=== PATIENT | male | born 1970 | race Caucasian/White ===

== ENCOUNTER 2017-10-07 09:37 | Emergency (ER) | payer MEDICAID ==
[~2017-10-07] VITALS: Ht 180.3 cm; Wt 104.5 kg
[2017-10-07 09:43] VITALS: BP 149/82
[2017-10-07] MEDS ORDERED: METR500T PO (10:25)
[2017-10-07] MEDS ORDERED: CLIN150C2 PO (10:26)
== END 2017-10-07 10:50 | disposition home or self-care (01) ==
LOC: ER 09:38
DX: L02.416 Cutaneous abscess of left lower limb (principal); G89.29 Other chronic pain; F12.10 Cannabis abuse, uncomplicated; Z98.890 Other specified postprocedural states; Z79.899 Other long term (current) drug therapy
CPT/HCPCS: 99283

== ENCOUNTER 2018-02-24 16:24 | Inpatient (IN) | payer MEDICAID ==
[~2018-02-24] VITALS: Ht 175.3 cm; Wt 105.0 kg
[2018-02-24] MEDS ORDERED: normal saline 1000ML IV soln IV ONE (17:25)
[2018-02-24 17:49] LABS: BASOPHILS # (AUTO) 0.1 X10'3 (0-0.2); BASOPHILS % (AUTO) 0.8 % (0-1); EOSINOPHILS # (AUTO) 0.2 X10'3 (0-0.9); EOSINOPHILS % (AUTO) 1.7 % (0-6); HEMATOCRIT 36.5 % (42.0-52.0); HEMOGLOBIN 12.9 g/dl (14.0-17.9); LYMPHOCYTES # (AUTO) 2.1 X10'3 (1.1-4.8); LYMPHOCYTES % (AUTO) 19.1 % (21-51); MEAN CORPUSCULAR HEMOGLOBIN 32.3 PG (27.0-31.0); MEAN CORPUSCULAR HGB CONC 35.4 % (33.0-36.5); MEAN CORPUSCULAR VOLUME 91.2 FL (78-98); MEAN PLATELET VOLUME 9.4 FL (7.4-10.4); MONOCYTES % (AUTO) 9.3 % (2-12); NEUTROPHILS # (AUTO) 7.7 X10'3 (1.8-7.7); NEUTROPHILS % (AUTO) 69.1 % (42-75); PLATELET COUNT 258 X10'3 (140-440); WHITE BLOOD COUNT 11.2 X10'3 (4.5-11.0)
[2018-02-24 17:58] LABS: PROTHROMBIN TIME 10.4 SECONDS (9.0-12.0)
[2018-02-24 18:02] LABS: CLARITY,URINE CLEAR (Clear); COLOR,URINE YELLOW (Yellow); GLUCOSE, URINE NEGATIVE (Neg); KETONES,URINE NEGATIVE (Neg); LEUKOCYTE ESTERASE ,URINE NEGATIVE (Neg); NITRITES, URINE NEGATIVE (Neg); OCCULT BLOOD,URINE NEGATIVE (Neg); PROTEIN,URINE NEGATIVE (Neg); UROBILINOGEN,URINE 0.2 E.U/dL (0.2-1.0)
[2018-02-24 18:04] LABS: UA COLLECTION TYPE CLN CATCH MIDSTREAM
[2018-02-24 18:06] LABS: ALANINE AMINOTRANSFERASE 10 U/L (12-78); ALBUMIN 3.9 G/DL (3.4-5.0); ALKALINE PHOSPHATASE 134 IU/L (46-116); ANION GAP 10 (8-16); ASPARTATE AMINO TRANSFERASE 16 U/L (10-37); BILIRUBIN,TOTAL 0.6 MG/DL (0.1-1.0); BLOOD UREA NITROGEN 8 MG/DL (7-18); BUN/CREATININE RATIO 7.2 (5.4-32.0); CALCIUM 8.7 MG/DL (8.5-10.1); CHLORIDE 99 MMOL/L (99-107); CREATININE 1.11 MG/DL (0.60-1.10); GLUCOSE 156 MG/DL (70-104); POTASSIUM 3.2 MMOL/L (3.5-5.1); SODIUM 133 MMOL/L (135-145); TOTAL CARBON DIOXIDE 23.7 MMOL/L (24-32); TOTAL PROTEIN 7.7 G/DL (6.4-8.2); eGFR 71 ML/MIN
[2018-02-24] MEDS ORDERED: iohexol 350MG/ML 100ml bottle IV ONE (18:13)
[2018-02-24] MEDS ORDERED: vancomycin/NS 1 GM ADD-VANTAGE 250 ML IV ONE (18:20)
[2018-02-24] MEDS ORDERED: FLUO20CA22 PO (18:35)
[2018-02-24] MEDS ORDERED: LORA1TAB PO (18:36)
[2018-02-24] MEDS ORDERED: CLON0.2T PO (18:36)
[2018-02-24] MEDS ORDERED: CEPH500C2 PO (18:37)
[2018-02-24] MEDS ORDERED: SULF1TAB49 PO (18:39)
[2018-02-24] MEDS ORDERED: GABA-532 PO (18:42)
[2018-02-24] MEDS ORDERED: morphine 4 MG/ML inj SYRINge IV ONE (19:10)
[2018-02-24] MEDS ORDERED: proCHLORperazine 10 MG/2 ml inj IV ONE (19:10)
[2018-02-24] MEDS ORDERED: mag hydrox/Alum hydrox/simeth 30ml oral suspension PO PRN (20:10)
[2018-02-24] MEDS ORDERED: magnesium hydroxide 30ml (MOM) UD suspension PO PRN (20:10)
[2018-02-24] MEDS ORDERED: HYDROcodone/acetaminophen 5mg/325mg tablet PO PRN (20:10)
[2018-02-24] MEDS ORDERED: potassium Cl 20 mEq SR tablet PO PRN ×2 (20:10)
[2018-02-24] MEDS ORDERED: magnesium 4gm in 100ml NS 100 ML IV PRN (20:10)
[2018-02-24] MEDS ORDERED: magnesium 1gm/100ml D5W IVPB 100 ML IV PRN (20:10)
[2018-02-24] MEDS ORDERED: ondansetron/PF 4mg/2ml inj IV PRN (20:10)
[2018-02-24] MEDS ORDERED: potassium Cl 40MEQ/NS 500ml 500 ML IV PRN ×2 (20:10)
[2018-02-24] MEDS ORDERED: morphine 4 MG/ML inj SYRINge IV PRN ×2 (20:10)
[2018-02-24] MEDS ORDERED: acetaminophen 325mg tablet PO PRN (20:10)
[2018-02-24] MEDS: normal saline 1000ml 1,000 ML IV SCH (20:28)
[2018-02-24] MEDS: levoFLOXACIN 750MG TABLET PO SCH (20:30)
[2018-02-24 21:00] VITALS: BP 132/56
[2018-02-24] MEDS ORDERED: temazepam 15mg capsule PO PRN (21:00)
[2018-02-24] MEDS ORDERED: LORA2TAB PO (22:13)
[2018-02-25] MEDS: normal saline 1000ml 1,000 ML IV SCH ×2 (03:55→17:02)
[2018-02-25] MEDS: dronabinol 2.5mg capsule PO PRN ×3 (04:04→19:16)
[2018-02-25 06:00] VITALS: BP 113/49
[2018-02-25 06:13] LABS: BASOPHILS % (AUTO) 0.4 % (0-1); EOSINOPHILS # (AUTO) 0.2 X10'3 (0-0.9); EOSINOPHILS % (AUTO) 2.3 % (0-6); HEMATOCRIT 37.2 % (42.0-52.0); HEMOGLOBIN 12.7 g/dl (14.0-17.9); LYMPHOCYTES # (AUTO) 1.7 X10'3 (1.1-4.8); LYMPHOCYTES % (AUTO) 18.5 % (21-51); MEAN CORPUSCULAR HEMOGLOBIN 31.5 PG (27.0-31.0); MEAN CORPUSCULAR HGB CONC 34.2 % (33.0-36.5); MEAN CORPUSCULAR VOLUME 92.3 FL (78-98); MEAN PLATELET VOLUME 9.7 FL (7.4-10.4); NEUTROPHILS # (AUTO) 6.4 X10'3 (1.8-7.7); NEUTROPHILS % (AUTO) 67.8 % (42-75); PLATELET COUNT 248 X10'3 (140-440); RED BLOOD COUNT 4.03 X10'6 (4.70-6.10); RED CELL DISTRIBUTION WIDTH 12.8 % (11.5-14.5); WHITE BLOOD COUNT 9.3 X10'3 (4.5-11.0)
[2018-02-25 06:43] LABS: ALANINE AMINOTRANSFERASE 14 U/L (12-78); ALBUMIN 3.6 G/DL (3.4-5.0); ALKALINE PHOSPHATASE 125 IU/L (46-116); ANION GAP 8 (8-16); ASPARTATE AMINO TRANSFERASE 20 U/L (10-37); BILIRUBIN,TOTAL 0.6 MG/DL (0.1-1.0); BLOOD UREA NITROGEN 7 MG/DL (7-18); BUN/CREATININE RATIO 7.2 (5.4-32.0); CALCIUM 8.4 MG/DL (8.5-10.1); CHLORIDE 104 MMOL/L (99-107); CREATININE 0.97 MG/DL (0.60-1.10); GLUCOSE 106 MG/DL (70-104); POTASSIUM 3.8 MMOL/L (3.5-5.1); SODIUM 138 MMOL/L (135-145); TOTAL CARBON DIOXIDE 25.8 MMOL/L (24-32); TOTAL PROTEIN 7.3 G/DL (6.4-8.2); eGFR 83 ML/MIN
[2018-02-25] MEDS: enoxaparin 40mg/0.4ml syringe SQ SCH (07:16)
[2018-02-25] MEDS: K and/or MAG REPLACEMENT MC SCH (08:00)
[2018-02-25] MEDS ORDERED: ALBU18HF2 IN (08:14)
[2018-02-25 10:00] VITALS: BP 115/54
[2018-02-25] MEDS: levoFLOXACIN 750MG TABLET PO SCH (10:54)
[2018-02-25] MEDS ORDERED: albuterol 2.5 MG/3 ML nebule NEB PRN (13:10)
[2018-02-25] MEDS: gabapentin 300mg capsule PO SCH ×2 (16:02→23:15)
[2018-02-25] MEDS ORDERED: FLUO-1 PO (16:43)
[2018-02-25] MEDS: cloNIDine 0.1 mg tablet PO SCH (17:02)
[2018-02-25 18:00] VITALS: BP 134/67
[2018-02-25] MEDS: HYDROcodone/acetaminophen 10/325mg tab PO PRN (19:17)
[2018-02-25] MEDS ORDERED: LORazepam 1 MG tablet PO SCH (21:00)
[2018-02-25 22:00] VITALS: BP 118/49
[2018-02-26 06:00] VITALS: BP 118/57
[2018-02-26 06:05] LABS: BASOPHILS % (AUTO) 0.6 % (0-1); EOSINOPHILS # (AUTO) 0.2 X10'3 (0-0.9); HEMATOCRIT 36.2 % (42.0-52.0); HEMOGLOBIN 12.5 g/dl (14.0-17.9); LYMPHOCYTES # (AUTO) 2.3 X10'3 (1.1-4.8); LYMPHOCYTES % (AUTO) 28.8 % (21-51); MEAN CORPUSCULAR HEMOGLOBIN 31.6 PG (27.0-31.0); MEAN CORPUSCULAR HGB CONC 34.4 % (33.0-36.5); MEAN CORPUSCULAR VOLUME 91.7 FL (78-98); MEAN PLATELET VOLUME 9.8 FL (7.4-10.4); MONOCYTES # (AUTO) 0.8 X10'3 (0-0.9); MONOCYTES % (AUTO) 9.7 % (2-12); NEUTROPHILS # (AUTO) 4.5 X10'3 (1.8-7.7); NEUTROPHILS % (AUTO) 57.9 % (42-75); PLATELET COUNT 237 X10'3 (140-440); RED BLOOD COUNT 3.95 X10'6 (4.70-6.10); RED CELL DISTRIBUTION WIDTH 13.1 % (11.5-14.5); WHITE BLOOD COUNT 7.8 X10'3 (4.5-11.0)
[2018-02-26 06:25] LABS: ALANINE AMINOTRANSFERASE 10 U/L (12-78); ALBUMIN 3.3 G/DL (3.4-5.0); ALBUMIN/GLOBULIN RATIO 0.9 (1.1-1.5); ALKALINE PHOSPHATASE 127 IU/L (46-116); ANION GAP 9 (8-16); ASPARTATE AMINO TRANSFERASE 17 U/L (10-37); BILIRUBIN,TOTAL 0.5 MG/DL (0.1-1.0); BLOOD UREA NITROGEN 6 MG/DL (7-18); BUN/CREATININE RATIO 6.9 (5.4-32.0); CHLORIDE 105 MMOL/L (99-107); CREATININE 0.87 MG/DL (0.60-1.10); GLUCOSE 100 MG/DL (70-104); POTASSIUM 3.7 MMOL/L (3.5-5.1); SODIUM 139 MMOL/L (135-145); TOTAL CARBON DIOXIDE 25.3 MMOL/L (24-32); TOTAL PROTEIN 7.1 G/DL (6.4-8.2); eGFR > 90 ML/MIN
[2018-02-26] MEDS: gabapentin 300mg capsule PO SCH (07:07)
[2018-02-26] MEDS: cloNIDine 0.1 mg tablet PO SCH (07:07)
[2018-02-26] MEDS: normal saline 1000ml 1,000 ML IV SCH (07:08)
[2018-02-26] MEDS: enoxaparin 40mg/0.4ml syringe SQ SCH (07:11)
[2018-02-26] MEDS: dronabinol 2.5mg capsule PO PRN (07:56)
[2018-02-26] MEDS ORDERED: FLUoxetine 20mg capsule PO SCH (08:00)
[2018-02-26] MEDS: K and/or MAG REPLACEMENT MC SCH (08:00)
[2018-02-26] MEDS: HYDROcodone/acetaminophen 10/325mg tab PO PRN (10:12)
[2018-02-26] MEDS ORDERED: VANCOMYCIN LEVEL IV ONE (10:30)
[2018-02-26] MEDS: levoFLOXACIN 750MG TABLET PO SCH (11:12)
[2018-02-26] MEDS ORDERED: HYDR-3965 PO (12:04)
[2018-02-26] MEDS ORDERED: SULF1TAB49 PO (12:04)
== END 2018-02-26 13:30 | disposition home health service (06) | DRG 720 ==
LOC: ER 16:25 → ED HOLD 20:06 → ORTHO 4S 20:59
PROVIDERS: ADMIT Family Medicine; ATTEND Family Medicine
DX: A41.9 Sepsis, unspecified organism (principal); E87.1 Hypo-osmolality and hyponatremia; L03.116 Cellulitis of left lower limb; F12.90 Cannabis use, unspecified, uncomplicated; M50.30 Other cervical disc degeneration, unspecified cervical region; N28.9 Disorder of kidney and ureter, unspecified; G89.29 Other chronic pain; M54.9 Dorsalgia, unspecified; Z79.899 Other long term (current) drug therapy
CPT/HCPCS: 36415; 73701; 80053; 80202; 81003; 82948; 83605; 83735; 84145; 85025; 85610; 87040; 87070; 87075; 87077; 87102; 87186; 93005; 93971; 96365; 96375; 99285; A6212; A6222; J0780; J1650; J2270; J3370; J7030; Q0167; Q9967